=== PATIENT | male | born 1960 | race Caucasian/White ===

== ENCOUNTER 2023-12-10 11:07 | Day surgery (SDC) | payer OTHER, SELFPAY ==
[2023-12-10 11:17] VITALS: BP 149/69; PULSE 77; RESP 18; TEMP 36.3; O2SAT 98; BMI 39.0
--- NOTE | 2023-12-10 11:49 | EXP.PAIN.PRO ---
Procedure Date: 12/10/23 Time: 11:45 Anesthesiologist:: Kaleb Spring CRNA Complications:: None Pre-procedure Diagnosis:: Degenerative disc lumbar spine multilevels. Lumbar radiculopathy. Post-procedure Diagnosis:: Same. Indications for Procedure:: Patient is a very pleasant 63-year-old male comes our clinic today for lumbar epidural steroid injection at the L4-5 level. Patient has had some moderate improvement terms of his overall low back pain as well as bilateral hip and leg radicular symptoms with previous injections. He describes low back pain as constant, dull, aching. He rates his pain 8/10. 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 He describes pain increases when sitting for length of time. Procedure Details:: Procedure: Lumbar epidural steroid injection under fluoroscopy Informed consent was obtained and the risks and benefits of the procedure were explained to the patient. The patient was taken to the procedure room and noninvasive monitors placed, including noninvasive blood pressure cuff and pulse oximeter. The back was viewed using C-arm Fluoroscopy and prepped using Chloraprep as a cleansing solution and the L4-L5 interspace was palpated. Skin and subcutaneous tissues were anesthetized using lidocaine 1.5% and a 25-gauge needle. After this, an 18-gauge Touhy epidural needle was placed into the L4-L5 interspace and advanced using fluoroscopic guidance and loss of resistance to air until the epidural space was encountered. After confirmation of needle placement in the epidural space, with dye, a solution containing normal saline, 3 mL and Depo-Medrol 80 mg were incrementally injected into the lumbar epidural space. The patient tolerated the procedure well with no complications. The patient was observed in the Pain Clinic and then discharged home neurologically intact. Plan and Disposition:: Patient was discharged without incident.
[2023-12-10 11:52] VITALS: BP 143/66; PULSE 70; RESP 18; O2SAT 98
[2023-12-10 12:15] VITALS: BP 130/80; PULSE 85; RESP 18; O2SAT 97
[2023-12-10] MEDS: methylPREDNISolone ACETATE 80MG/ML VIAL 80 MG (12:15)
[2023-12-10 12:17] VITALS: BP 130/80; PULSE 85; RESP 18; O2SAT 97
== END 2023-12-10 11:52 | disposition home or self-care (01) ==
PROVIDERS: Visit Provider Nurse Anesthetist, Certified Registered
DX: M51.16 Intervertebral disc disorders with radiculopathy, lumbar region (principal)
CPT/HCPCS: 62323; J1040